=== PATIENT | female | born 1975 | race Caucasian/White ===

== ENCOUNTER 2019-06-02 22:33 | Emergency (ER) | payer BC ==
[~2019-06-02] VITALS: Ht 157.5 cm; Wt 49.9 kg
--- NOTE | 2019-06-02 22:43 | NUR ---
BIB EMS FROM HOME C/O: RUQ ABDOMINAL PAIN STARTED 2 HOURS PRIOR AUTHORIZATION TECHNICIAN, TO ER BED 3 ABD PAIN 10/10, VSS, CONNECTED TO MONITOR. AWAITING MED EVAL
[2019-06-02] MEDS ORDERED: MORPHINE SULFATE INJ 4 MG/ML DISP.SYRIN ONE (22:54)
[2019-06-02] MEDS ORDERED: MORPHINE SULFATE INJ 2 MG/ML DISP.SYRIN IV ONE (23:00)
[2019-06-02] MEDS: IV NS 0.9% 1,000 ML BAG IV ONE (23:02)
[2019-06-02 23:07] LABS: BASOPHILS % (AUTO) 0.4 % (0.0-2.0); EOSINOPHILS % (AUTO) 4.4 % (0.0-6.0); HEMATOCRIT 38 % (33-45); HEMOGLOBIN 13.5 g/dL (11.5-14.8); LYMPHOCYTES # (AUTO) 2.7 /CMM (0.8-4.8); LYMPHOCYTES % (AUTO) 30.4 % (20.0-44.0); MEAN CORPUSCULAR HGB CONC 36 g/dl (31.0-36.0); MEAN CORPUSCULAR VOLUME 87 fL (82-100); MONOCYTES # (AUTO) 0.7 /CMM (0.1-1.30); MONOCYTES % (AUTO) 8.1 % (2.0-12.0); NEUTROPHILS # (AUTO) 5.1 /CMM (1.8-8.9); NEUTROPHILS % (AUTO) 56.7 % (43.0-81.0); PLATELET COUNT (AUTO) 249 /CMM (150-450); RED BLOOD CELL COUNT(AUTO) 4.33 MIL/uL (4.0-5.2)
--- NOTE | 2019-06-02 23:14 | NUR ---
TECH AT BEDSIDE FOR XRAY
[2019-06-02 23:15] LABS: CALCIUM, SERUM 8.9 mg/dL (8.5-10.1); CREATININE 0.8 mg/dL (0.6-1.3); POTASSIUM 3.4 mmol/L (3.5-5.1)
[2019-06-02 23:21] LABS: BILIRUBIN,DIRECT 0.1 mg/dL (0.0-0.2); BILIRUBIN,TOTAL 0.5 mg/dL (0.2-1.0); TOTAL PROTEIN, SERUM 6.6 g/dL (6.4-8.2)
--- NOTE | 2019-06-02 23:45 | NUR ---
TECH AT BEDSIDE FOR US
[2019-06-03] MEDS ORDERED: IV NS 0.9% 250 ML IV ONE (00:10)
[2019-06-03] MEDS ORDERED: IOHEXOL-300 100 ML VIAL IV ONE (00:10)
[2019-06-03] MEDS ORDERED: CT SWABBABLE VALVE TRANS SET 1 EA INFUS.SET MC ONE (00:10)
--- NOTE | 2019-06-03 00:17 | NUR ---
ENDORSED REPORT TO MONTY RODRIGUEZ
[2019-06-03 01:20] VITALS: BP 130/65
--- NOTE | 2019-06-03 01:27 | NUR ---
Patient discharged to home in stable condition. Written and verbal after care instructions given. Patient verbalizes understanding of instruction. IV removed. Catheter intact and site benign. Pressure and 4x4 applied to site. No bleeding noted.
== END 2019-06-03 01:28 | disposition home or self-care (01) ==
LOC: ER 22:35
DX: R10.11 Right upper quadrant pain (principal); R11.10 Vomiting, unspecified; Z88.0 Allergy status to penicillin; Z88.5 Allergy status to narcotic agent
CPT/HCPCS: 36415; 71045; 74177; 76705; 80048; 80076; 83690; 85025; 96361; 96374; 99284; J2270; J7030; J7050; Q9967